=== PATIENT | male | born 1995 | race Two or more races ===

== ENCOUNTER 2018-07-12 02:24 | Inpatient (IN) | payer BC, OTHER, SELFPAY ==
[2018-07-12] MEDS ORDERED: fentaNYL Citrate/PF 2,000 MCG in Sodium Chloride 0.9% 60 ML IV SCH (02:30)
[2018-07-12] MEDS ORDERED: Fentanyl 100 MCG/2 ML VIAL ONE (02:38)
[2018-07-12 02:46] LABS: #Basophils 0.1 thou/uL (0.0-0.2); #Eosinphils 0.2 thou/uL (0.0-0.7); #Lymphocytes 2.9 thou/uL (1.20-3.40); #Monocytes 0.8 thou/uL (0.11-0.59); #Neutrophils 6.4 thou/uL (1.40-6.50); %Basophils 0.9 % (0.0-1.0); %Eosinophils 2.1 % (0.0-10.0); %Lymphocytes 27.9 % (21.0-51.0); %Neutrophils 61.1 % (42.0-75.0); Hemoglobin 15.3 g/dL (14.0-18.0); Mean Corpuscular HGB CONC 34.8 g/dL (32.0-36.0); Mean Corpuscular Hemoglobin 32.8 pg (27.0-31.0); Mean Corpuscular Volume 94.4 fL (78.0-98.0); Mean Platelet Volume 6.9 fL (7.4-10.4); Platelet Count 198 thou/uL (130-400); RBC Distribution Width 11.3 % (11.5-14.5); Red Blood Cell (RBC) Count 4.67 mill/uL (4.70-6.10); White Blood Cell (WBC) Count 10.5 thou/uL (4.8-10.8)
[2018-07-12 02:55] LABS: INR-International Normal Ratio 1.1; PTT 28.1 SEC (22.9-36.1); Prothrombin Time 13.8 SEC (12.0-14.7)
[2018-07-12 02:55] LABS: Bilirubin Negative (Negative); Blood, Urine Moderate (Negative); Clarity CLOUDY (Clear); Glucose, Urine (Dipstick) Negative (Negative); Leukocyte Negative (Negative); Nitrite Negative (Negative); Protein, Urine (Dipstick) 30 mg/dL (Neg-Trace); Specific Gravity, Urine 1.007 (1.002-1.036)
[2018-07-12 02:57] LABS: Bacteria/HPF None Seen HPF (None Seen); Hyaline Casts/LPF 0-3 HYALINE CAST LPF (0-3 Hyaline); Pathc Cast-AUWi Flag 0.14 (0-2.49); Squamous Epithelial 0-3 HPF (0-3); WBC/HPF 0-3 HPF (0-3)
[2018-07-12] MEDS ORDERED: Adacel (T-DAP) 0.5 ML VIAL ONE (03:02)
[2018-07-12 03:07] LABS: Amphetamine Not Detected (NotDetected); Barbiturates Screen Not Detected (NotDetected); Benzodiazepine Screen Not Detected (NotDetected); Cocaine Metabolite Screen Detected (NotDetected); Medtox Control Line Valid? VALID (VALID); Medtox Reader # READER 1; Methadone Not Detected (NotDetected); Methamphetamine Not Detected (NotDetected); Opiate Screen Not Detected (NotDetected); Oxycodone Screen Not Detected (NotDetected); Phencyclidine (PCP) Not Detected (NotDetected); THC/Cannabinoid Screen Detected (NotDetected); Tricyclic Screen Not Detected (NotDetected)
[2018-07-12 03:10] LABS: ALT (SGPT) 20 U/L (8-55); AST (SGOT) 28 U/L (5-34); Acetaminophen Less than 6.0 mcg/mL (10.0-30.0); Albumin 3.5 g/dL (3.5-5.0); Alcohol 243 mg/dL (Less than 10); Alcohol 244 mg/dL (Less than 10); Alkaline Phosphatase 52 U/L (40-150); Anion Gap 15 mmol/L (10-20); BUN (Urea Nitrogen) 11 mg/dL (8.9-20.6); Bilirubin, Total 0.7 mg/dL (0.2-1.2); CK (CPK) 196 U/L (30-200); Calc. Creatinine Clearance 0 mL/min (70-130); Calcium 7.8 mg/dL (7.8-10.44); Carbon Dioxide 17 mmol/L (22-29); Chloride 112 mmol/L (98-107); Estimated GFR-MDRD Greater than 90; Globulin 1.6 g/dL (2.4-3.5); Glucose 105 mg/dL (70-105); Lipase 17 U/L (8-78); Potassium 3.1 mmol/L (3.5-5.1); Protein, Total 5.1 g/dL (6.0-8.3); Salicylate Less than 8.0 mg/dL (15.0-30.0); Sodium 141 mmol/L (136-145)
[2018-07-12 03:13] LABS: CKMB 1.9 ng/mL (0-6.6); Troponin I Less than 0.010 ng/mL (< 0.028)
[2018-07-12 03:14] LABS: Renal Epithelial None Seen HPF (0-3); Transitional Epithelial NONE SEEN HPF (0-3)
[2018-07-12] MEDS ORDERED: Fentanyl BOLUS 250 ML IVPB PRN (03:14)
[2018-07-12] MEDS ORDERED: Lorazepam 2 MG/ML VIAL SLOW IVP PRN (03:14)
[2018-07-12] MEDS ORDERED: Propofol 1,000 MG/100 ML VIAL IV PRN (03:14)
[2018-07-12] MEDS ORDERED: DISCONTINUE PREVIOUS NARCOTIC PAIN MEDICATIONS AND BENZODIAZEPINES FS SCH (03:14)
[2018-07-12] MEDS ORDERED: Propofol BOLUS 1,000 MG/100 ML VIAL IV PRN (03:14)
[2018-07-12] MEDS ORDERED: Ventilator Sedation Protocol 1 EACH FS SCH (03:15)
[2018-07-12 03:19] LABS: Actual Bicarbonate (HCO3a) 16.7 mEq/L (22-28); Analyzer IN Cardio ER; Base Excess (BEa) -6.5 mEq/L (-2.0 to +3.0); CO2 Tension 28.2 mmHg (35.0-45.0); Calcium, Ionized 1.07 mmol/L (1.12-1.30); Carboxyhemoglobin (COHb) 0.6 gm% (0.0-3.0); Hemoglobin (Hb) 16.3 g/dL (14.0-18.0); O2 Tension (PaO2) 210.1 mmHg (80.0-100.0); Potassium - ABG Lab 3.26 mmol/L (3.70-5.30); pH, Arterial 7.39 (7.35-7.45)
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
[2018-07-12] MEDS ORDERED: hydrALAZINE 20 MG/ML VIAL SLOW IVP PRN (04:17)
[2018-07-12] MEDS ORDERED: Dextrose 5% in Water 1,000 ML IV PRN (04:17)
[2018-07-12] MEDS ORDERED: Ondansetron ODT 4 MG TAB PO PRN (04:17)
[2018-07-12] MEDS ORDERED: Dextrose 50% Abboject 50 ML SYRINGE SLOW IVP PRN (04:17)
[2018-07-12] MEDS ORDERED: Ondansetron HCl/PF 4 MG/2 ML Vial IVP PRN (04:17)
[2018-07-12 05:15] LABS: Puncture Site LBA
[2018-07-12] MEDS ORDERED: Midazolam HCl 5 mg/ml Vial ONE (05:49)
[2018-07-12 07:06] LABS: #Basophils 0.1 thou/uL (0.0-0.2); #Eosinphils 0.1 thou/uL (0.0-0.7); #Monocytes 1.2 thou/uL (0.11-0.59); #Neutrophils 11.4 thou/uL (1.40-6.50); %Basophils 0.5 % (0.0-1.0); %Eosinophils 0.6 % (0.0-10.0); %Lymphocytes 13.5 % (21.0-51.0); %Monocytes 7.9 % (0.0-10.0); %Neutrophils 77.4 % (42.0-75.0); Hemoglobin 14.2 g/dL (14.0-18.0); Mean Corpuscular HGB CONC 34.5 g/dL (32.0-36.0); Mean Corpuscular Hemoglobin 32.5 pg (27.0-31.0); Mean Corpuscular Volume 94.2 fL (78.0-98.0); Mean Platelet Volume 6.4 fL (7.4-10.4); Platelet Count 185 thou/uL (130-400); RBC Distribution Width 11.3 % (11.5-14.5); Red Blood Cell (RBC) Count 4.39 mill/uL (4.70-6.10); White Blood Cell (WBC) Count 14.7 thou/uL (4.8-10.8)
[2018-07-12 07:21] LABS: Lactic Acid 2.6 mmol/L (0.5-2.2)
[2018-07-12 07:25] LABS: Anion Gap 10 mmol/L (10-20); BUN (Urea Nitrogen) 9 mg/dL (8.9-20.6); Calc. Creatinine Clearance 0 mL/min (70-130); Calcium 7.5 mg/dL (7.8-10.44); Carbon Dioxide 21 mmol/L (22-29); Chloride 115 mmol/L (98-107); Estimated GFR-MDRD Greater than 90; Glucose 100 mg/dL (70-105); Potassium 3.7 mmol/L (3.5-5.1); Sodium 142 mmol/L (136-145)
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
[2018-07-12] MEDS: Famotidine/PF 20 mg/2ml Vial SLOW IVP SCH ×2 (09:32→20:07)
[2018-07-12] MEDS: Sodium Chloride 0.9% 1,000 ML IV SCH ×3 (09:34→22:11)
[2018-07-12] MEDS ORDERED: ISOVUE-370 76%-LOCM 1 ML ONE (13:26)
--- NOTE | 2018-07-12 14:15 | RAD ---
THREE VIEWS RIGHT ANKLE: Indication: Swollen, difficulty weightbearing. Comparison: None. FINDINGS: There is a nondisplaced talar dome fracture, best seen on the AP projection. There is soft tissue swe lling surrounding the right ankle. No additional fracture is evident. IMPRESSION: Nondisplaced talar dome fracture. Recommend CT evaluation of the right ankle for further characteriza tion. POS: [facility]
--- NOTE | 2018-07-12 22:19 | CT ---
NONCONTRAST CT RIGHT ANKLE: 07/12/2018 HISTORY: Talar dome fracture on the right. FINDINGS: There is an obliquely oriented, comminuted fracture involving the talus, with the fracture extending from the posterolateral talar dome and extending into the level of the subtalar joint. There is mild separation of fracture fragments, with the greatest degree of separation measuring approximately 6 m m. Small osseous fragments are seen in the region of the comminuted fracture as well. This fracture also extends obliquely from the aspect of the talar dome to the anteromedial aspect of the talar dom e, with a vertically oriented component present as well. There is a mildly fracture involving the most inferior aspect of the lateral malleolus. A few osseous fragments are also seen just medial and posterior to the calcaneal cuboid joint. No fracture is seen involving the distal tibia, and there is no evidence of a dislocation. There is subcutaneous soft tissue swelling seen about the hindfoot and ankle. IMPRESSION: 1. Comminuted fracture involving the talus with the fracture extending obliquely from anterior to po sterior, as well as from superior to inferior, with osseous fragments seen adjacent to the talus. Th e fracture does extend into the tibiotalar joint. 2. Mildly fracture involving the inferior aspect of the lateral malleolus. 3. Prominent subcutaneous soft tissue swelling. POS: [facility]
[2018-07-13] MEDS: Sodium Chloride 0.9% 1,000 ML IV SCH ×2 (01:20→19:49)
[2018-07-13] MEDS: Famotidine/PF 20 mg/2ml Vial SLOW IVP SCH ×2 (07:52→21:48)
[2018-07-13] MEDS ORDERED: Ropivacaine 0.5% HCl/PF (150 MG/30 ML VIAL) ONE (12:42)
[2018-07-13] MEDS ORDERED: Ropivacaine 0.2% HCl/PF (40 MG/20 ML VIAL) ONE (12:42)
[2018-07-13] MEDS ORDERED: PROPOFOL 200 MG/20 ML VIAL ONE (13:18)
[2018-07-13] MEDS ORDERED: Ondansetron HCl/PF 4 MG/2 ML Vial ONE (13:18)
[2018-07-13] MEDS ORDERED: Dexamethasone 20 MG/5 ML VIAL ONE (13:18)
[2018-07-13] MEDS ORDERED: Ketorolac Tromethamine 30 MG/ML VIAL ONE (13:18)
[2018-07-13] MEDS ORDERED: CEFAZOLIN/Water 2 GM/20 ML SYRINGE SLOW IVP SCH (13:30)
[2018-07-13] MEDS ORDERED: Midazolam HCl 2 mg/2 ml Vial ONE (14:32)
[2018-07-13] MEDS ORDERED: Fentanyl 100 MCG/2 ML VIAL ONE ×2 (14:32→15:59)
[2018-07-13] MEDS ORDERED: Zolpidem Tartrate 5 MG TAB PO PRN (15:02)
[2018-07-13] MEDS ORDERED: Ondansetron HCl/PF 4 MG/2 ML Vial IVP PRN ×2 (15:02→17:26)
[2018-07-13] MEDS ORDERED: Ropivacaine 0.2% 550 ML 550 ML NERVE BLCK SCH (15:02)
[2018-07-13] MEDS ORDERED: Fentanyl 100 MCG/2 ML VIAL IV PRN (15:02)
[2018-07-13] MEDS ORDERED: HYDROcodone/Acetaminophen 10/325 mg Tablet PO PRN ×2 (15:02)
[2018-07-13] MEDS ORDERED: Promethazine HCl 25 MG/ML VIAL IM PRN ×2 (15:02→17:26)
[2018-07-13] MEDS ORDERED: Neomycin-Polymyxin 1 ML AMP ONE (15:36)
[2018-07-13] MEDS ORDERED: Bupivacaine PF 0.5% 30 ML VIAL ONE (15:36)
[2018-07-13] MEDS ORDERED: CEFAZOLIN/Water 2 GM/20 ML SYRINGE ONE (15:44)
[2018-07-13] MEDS ORDERED: HYDROmorphone 2 MG/ML VIAL SLOW IVP PRN (17:26)
[2018-07-13] MEDS ORDERED: Promethazine HCl 25 MG/ML VIAL SLOW IVP PRN (17:26)
--- NOTE | 2018-07-13 18:38 | RAD ---
RIGHT ANKLE INTRAOPERATIVE FLUOROSCOPY 2 VIEWS: Date: 07/13/18 HISTORY: Ankle fracture. FINDINGS/IMPRESSION: Intraoperative fluoroscopy is provided for internal fixation. Spot fluoroscopic images show three ivy g screws transfixing the talus. Fluoro time: 35 seconds. POS: [facility]
[2018-07-13] MEDS ORDERED: Ibuprofen 800 MG TAB PO PRN (21:03)
[2018-07-13] MEDS ORDERED: Cyclobenzaprine 10 MG TAB PO PRN (21:03)
[2018-07-13] MEDS ORDERED: traMADol HCl 50 MG TAB PO PRN ×2 (21:03)
[2018-07-13] MEDS: Acetaminophen 500 MG TAB PO SCH (21:49)
[2018-07-13 21:52] VITALS: BMI 22.7
[2018-07-14] MEDS: CEFAZOLIN/Water 2 GM/20 ML SYRINGE SLOW IVP SCH ×2 (00:19→08:31)
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
[2018-07-14] MEDS: Acetaminophen 500 MG TAB PO SCH ×2 (04:57→10:44)
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
[2018-07-14] MEDS: Famotidine/PF 20 mg/2ml Vial SLOW IVP SCH (08:32)
[2018-07-14] MEDS ORDERED: Enoxaparin Sodium 40 MG/0.4 ML SYRINGE SC SCH (09:00)
[2018-07-14] MEDS ORDERED: Senokot 8.6 MG TAB PO SCH (09:00)
[2018-07-14] MEDS ORDERED: Polyethylene Glycol 3350 17 GM Packet PO SCH (09:00)
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
[2018-07-14 16:22] VITALS: BP 130/81; TEMP 98.5
== END 2018-07-14 16:36 | disposition home or self-care (01) | DRG 504 ==
LOC: ERS 02:24 → CCU 04:27 → SJJU 16:07
PROVIDERS: ADMIT Surgery; ATTEND Surgery
PROC: 5A1935Z Respiratory Ventilation, Less than 24 Consecutive Hours (ICD-10-PCS; 2018-07-12)
PROC: 0QSL04Z Reposition Right Tarsal with Internal Fixation Device, Open Approach (ICD-10-PCS; principal; 2018-07-13)
DX: S92.141A Displaced dome fracture of right talus, initial encounter for closed fracture (principal); S06.0X9A Concussion with loss of consciousness of unspecified duration, initial encounter; F32.3 Major depressive disorder, single episode, severe with psychotic features; F10.129 Alcohol abuse with intoxication, unspecified; F17.210 Nicotine dependence, cigarettes, uncomplicated; V48.5XXA Car driver injured in noncollision transport accident in traffic accident, initial encounter; Y92.410 Unspecified street and highway as the place of occurrence of the external cause; R40.2431 Glasgow coma scale score 3-8, in the field [EMT or ambulance]
CPT/HCPCS: 36415; 36556; 51702; 70450; 70486; 71045; 71260; 72125; 74177; 76001; 80053; 80306; 80307; 81003; 81015; 82550; 82553; 82805; 83605; 83690; 84484; 85025; 85610; 85730; 86850; 86900; 86901; 90471; 90715; 93005; 94002; 94640; 94760; 96365; 96366; 96375; 96376; 99292; A4306; C1713; C1769; G0390; G8978-GP-CK; G8979-GP-CI; G8987-GO-CJ; G8988-GO-CJ; G8989-GO-CJ; J1100; J1650; J1885; J2250; J2270; J2405; J2704; J2795; J3010; J7050; J7620; S0020; S0028